=== PATIENT | female | born 2000 | race Asian ===

== ENCOUNTER 2024-06-09 09:30 | Outpatient (REF) | payer OTHER, SELFPAY ==
[2024-06-09 13:10] LABS: MANUAL DIFF FLAG NO
[2024-06-09 13:15] LABS: Basophils Absolute Auto 0.1 X10*3/uL (0.0-0.2); Basophils Percent Auto 0.7 % (0-2); Eosinophils Absolute Auto 0.2 X10*3/uL (0.0-0.4); Eosinophils Percent Auto 2.2 % (0-4); Hematocrit 43.3 % (37.0-47.0); Hemoglobin 13.6 g/dl (12.0-16.0); Imm Gran Abs Auto 0.07 X10*3/uL (0.00-0.03); Imm Gran Pct Auto 0.7 % (0.0-0.4); Lymphocytes Absolute Auto 3.5 X10*3/uL (1.2-4.9); Lymphocytes Percent Auto 34.1 % (20-40); Mean Corpuscular HGB Conc 31.4 g/dl (31.0-35.0); Mean Corpuscular Hemoglobin 27.1 pg (27.0-33.0); Mean Corpuscular Volume 86.4 fL (80.0-98.0); Mean Platelet Volume 10.2 fL (9.4-12.3); Monocytes Absolute Auto 0.8 X10*3/uL (0.1-1.2); Monocytes Percent Auto 7.4 % (2-11); Neutrophils Absolute Auto 5.7 x10*3/uL (2.0-8.3); Neutrophils Percent Auto 54.9 % (45-73); Platelet Count 305 X10*3/uL (160-400); Red Blood Count 5.01 X10*6/uL (4.20-5.50); Red Cell Distribution Width 13.3 % (11.0-16.0); White Blood Count 10.3 X10*3/uL (4.8-10.8)
[2024-06-09 13:37] LABS: Alanine Aminotransferase 39 U/L (0-31); Albumin Level 4.1 g/dL (3.5-5.0); Alkaline Phosphatase 96 U/L (39-117); Anion Gap 12 (12-20); Aspartate Amino Transferase 21 U/L (5-31); Bilirubin Total 0.3 mg/dL (0.0-1.0); Blood Urea Nitrogen 10 mg/dL (9-16); Calcium 9.6 mg/dL (8.4-10.2); Carbon Dioxide 27 mmol/L (22-29); Chloride 106 mmol/L (96-108); Cholesterol 200 mg/dL (<200); Estimated Glomerular Filt Rate > 60; Glucose Fasting 129 mg/dL (60-99); HDL Cholesterol 48 mg/dL (>40); LDL Cholesterol Calculated 135 mg/dL (<100); Potassium 4.6 mmol/L (3.3-5.1); Sodium 140 mmol/L (135-145); Total Protein 7.6 g/dL (6.5-8.0); Triglycerides 88 mg/dL (<150)
[2024-06-09 13:54] LABS: Free T4 (Free Thyroxine) 1.02 ng/dL (0.71-1.85); Thyroid Stimulating Hormone 2.86 uIU/mL (0.32-4.0)
[2024-06-09 13:55] LABS: Estimated Average Glucose 143 mg/dL; Hemoglobin A1c % 6.6 % (<6.0)
== END 2024-06-09 09:31 | disposition home or self-care (01) ==
LOC: HO.HMGCLDS 09:30
PROVIDERS: PCP Internal Medicine; Visit Provider Internal Medicine
DX: Z00.00 Encounter for general adult medical examination without abnormal findings (principal); R53.83 Other fatigue; E78.5 Hyperlipidemia, unspecified
CPT/HCPCS: 36415; 80053; 80061; 83036; 84439; 84443; 85025

== ENCOUNTER 2024-09-05 13:18 | Outpatient (REF) | payer OTHER, SELFPAY ==
[2024-09-06 11:39] LABS: Bacterial Vaginosis PCR NEGATIVE (Negative); Candida Group PCR DETECTED (Not Detect); Candida glab krusei PCR NOT DETECTED (Not Detect); Trichomonas vaginalis PCR NOT DETECTED (Not Detect)
[2024-09-06 12:08] LABS: CT PCR NOT DETECTED (Not Detect.); NG PCR NOT DETECTED (Not Detect.)
== END 2024-09-05 13:19 | disposition home or self-care (01) ==
LOC: HO.LAB 13:18
PROVIDERS: PCP Internal Medicine; Visit Provider Advanced Practice Midwife
DX: N89.8 Other specified noninflammatory disorders of vagina (principal); Z01.419 Encounter for gynecological examination (general) (routine) without abnormal findings; R73.03 Prediabetes; E66.01 Morbid (severe) obesity due to excess calories; Z12.4 Encounter for screening for malignant neoplasm of cervix; Z11.3 Encounter for screening for infections with a predominantly sexual mode of transmission; Z30.09 Encounter for other general counseling and advice on contraception
CPT/HCPCS: 0352U; 87491; 87591; 99385

== ENCOUNTER 2024-09-05 13:18 | Outpatient (AMB) | payer OTHER, SELFPAY ==
[2024-09-05 13:46] VITALS: BP 120/80; BMI 52.1
--- NOTE | 2024-09-05 13:46 | MHC.OFFVIS ---
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 She said that she was told she was prediabetic in [place] and she was on Ozempic but she has not been able to get it here she saw her primary care provider just wants and has an appointment with him next week she was told that she still is prediabetic but he wanted her to work on trying to lose weight on her own 1st. She is trying to do intervals of walking in the morning and trying to better and smaller portions and limit carbs.. She is not using anything for control if she got she would have an . 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 She wants to work in [employer] Medical History (Updated 09/05/24 @ 14:54 by Bethanie Coppola CNM) Migraines Female Reproductive History Menstrual Age of Menarche: 13 Duration of menses: 6-7 days control method: none Total pregnancies: 0 History of abnormal pap smear: No (no previous pap) Physical Exam Vital Signs: Last Vital Signs BP 120/80 09/05/24 13:46 BMI result Body Mass Index 52.1 Const General: healthy appearing, comfortable, no acute distress, well developed and alert Nutritional Appearance: obese morbidly obese Orientation/consciousness: patient oriented x3 Limitations: no limitations HEENT Head: Yes normocephalic Neck Neck: Yes normal visual inspection Chest Chest palpation & inspection: normal inspection of the chest Breast/axilla inspection: normal inspection of the breasts and normal inspection of the axillae Breast/axilla palpation: normal palpation of the breasts and normal palpation of the axillae Resp Effort & Inspection: normal respiratory effort GI Inspection: Yes normal to inspection and No Abdominal wall edema Palpation (GI): Soft to palpation and nontender Other: Normal external vulva the 2 small bumps on labia majora where right and left meet above clitoris that maybe consistent condyloma but not quite clear. Vagina is pink and moist fairly normal menses which appears to be just starting Cervix pink nulliparous slightly difficult to feel and see secondary to adipose Uterus feels small mobile nontender difficult to feel completely secondary to adipose/habitus Adnexa nonenlarged nontender again limited by adipose tissue Good muscle tone. General: Yes bladder normal to palpation External Female Exam: normal external appearance and normal appearance of the urethra Speculum Exam - Vagina: normal appearance of the vagina and normal palpation Speculum Exam - Cervix: normal appearance of the cervix, normal palpation and nontender Bimanual exam- vagina & uterus: normal bimanual exam, normal palpation, uterine size normal, bladder normal to palpation, consistency normal, normal palpation, uterine mobility normal, uterine shape normal, No Cervical tenderness present, non-tender and no cervical motion tenderness Bimanual Exam- Adnexa, other: normal adnexae, no masses, normal and No adnexal tenderness Neuro General: patient oriented x3 Assessment & Plan Assessment & Plan (1) Prediabetes: Code(s): R73.03 - Prediabetes Category: Medical (2) Obesity, morbid, BMI 50 or higher: Comment: Full discussion regarding her health and goals and ways to achieve. Code(s): E66.01 - Morbid (severe) obesity due to excess calories Category: Medical (3) Encounter for gynecological examination with Papanicolaou smear of cervix: Code(s): Z01.419 - Encounter for gynecological examination (general) (routine) without abnormal findings Category: Medical (4) Cervical cancer screening: Code(s): Z12.4 - Encounter for screening for malignant neoplasm of cervix Category: Medical (5) Encounter for screening examination for sexually transmitted disease: Code(s): Z11.3 - Encounter for screening for infections with a predominantly sexual mode of transmission Category: Medical (6) control counseling: Comment: Reviewed options and side effects-menses are starting to start OCPs tomorrow reviewed risks in detail. Code(s): Z30.09 - Encounter for other general counseling and advice on contraception Category: Medical Plan -----Discussed in this visit the following: healthy balanced diet, regular and consistent exercise, getting recommended health screens, doing the best she can for her particular health concerns, kegel exercises, pap smear screening and followup recommendations, mammography screening and SBE, normal changes in cycles in her life stage--- . Most of the visit revolved discussing the largest issue for her health her weight and interplay that her other health issues even if they are not obvious at this time. She does know that she is prediabetic and she was diagnosed she was in [place] she was on Ozempic but has not been to get a year. It had not yet started work for her yes. I discussed strategies she is employed try to get healthier and discussed the importance of addressing this in his sees way at this time of her life before there was more damage the long-term effects of obesity and diabetes on her health. Discussed her activity, eating habits activity during the day and encouraged her to not be sedentary as that would increase her risk of blood clots as well as a review that there is a slight risk of blood clots on I am giving her a low-dose OCP and I reviewed how to take it and I recommend that she start tomorrow, as it is obvious that her menses have started now . So that if she does not success with her weight loss journey to consider other options but she would to discuss with her doctor. Encouraged her to proactive in efforts to pursue improved health and weight loss. Probable 1st Pap was done as well as STI testing.. She has an appointment with her primary next week, Orders: Orders Bacterial Vaginosis Panel Today N89.8 - Other specified noninflammatory disorders of vagina CT NG by PCR Today N89.8 - Other specified noninflammatory disorders of vagina Pap Smear Today Z00.00 - Encounter for general adult medical examination without abnormal findings Medications: New desog-e.estradiol/e.estradiol 0.15-0.02 mgx21 /0.01 mg x 5 1 tab PO DAILY 84 tabs 3RF Coding Level of Care Code New Pt Prev Care 18-39yr([id number] Diagnoses Prediabetes R73.03 Obesity, morbid, BMI 50 or higher E66.01 Encounter for gynecological examination with Papanicolaou smear of cervix Z01.419 Cervical cancer screening Z12.4 Encounter for screening examination for sexually transmitted disease Z11.3 control counseling Z30.09
== END 2024-09-05 15:00 | disposition home or self-care (01) ==
LOC: HO.HWSM 13:19
PROVIDERS: PCP Internal Medicine; Visit Provider Advanced Practice Midwife
DX: Z01.419 Encounter for gynecological examination (general) (routine) without abnormal findings (principal); R73.03 Prediabetes; E66.01 Morbid (severe) obesity due to excess calories; Z30.09 Encounter for other general counseling and advice on contraception
CPT/HCPCS: 99385

== ENCOUNTER 2024-09-05 14:51 | Outpatient (REF) | payer OTHER, SELFPAY | END 2024-09-05 14:52 | disposition home or self-care (01) | LOC: HO.LNP 14:51 | PROVIDERS: Visit Provider Advanced Practice Midwife | DX: Z00.00 Encounter for general adult medical examination without abnormal findings (principal) | CPT/HCPCS: 88175 ==

== ENCOUNTER 2024-10-02 11:15 | Outpatient (REF) | payer OTHER, SELFPAY ==
[2024-10-02 14:04] LABS: Estimated Average Glucose 200 mg/dL; Hemoglobin A1C 257.4986 umol/L; Hemoglobin A1c % 8.6 % (<6.0)
== END 2024-10-02 11:16 | disposition home or self-care (01) ==
LOC: HO.HMGCLDS 11:15
PROVIDERS: PCP Internal Medicine; Visit Provider Internal Medicine
DX: E11.9 Type 2 diabetes mellitus without complications (principal); R53.83 Other fatigue
CPT/HCPCS: 36415; 83036

== ENCOUNTER 2024-12-11 11:01 | Outpatient (AMB) | payer OTHER, SELFPAY ==
--- NOTE | 2024-12-11 11:05 | A.OFFVIS_ITS ---
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 She says she is not having any problems with pills her periods have started to be more regular though they can be heavy this last 1 was not as heavy as the previous ones. She does not get headaches anymore than she used to.. She started on Trulicity in October because she progressed from prediabetic to diabetic. She says the doctor told her her sugars were within acceptable range they are usually around fasting and 130 postprandial. She said she asked if she could get on the Ozempic but she said she had to try the Trulicity 1st for insurance reason. She sometimes has noted some areas of her vagina that feels sore and they it feels like they have cuts but it is usually after she has dry they put Monistat on it and it felt better. [facility] Medical History (Updated 12/11/24 @ 12:00 by Bethanie Coppola CNM) Migraines Female Reproductive History Menstrual Age of Menarche: 13 Duration of menses: 3-5 days Date of last menstrual period: 11/29/24 control method: pills Total pregnancies: 0 Date of last pap smear: 09/05/24 History of abnormal pap smear: No Physical Exam Vital Signs: Last Vital Signs BP 128/88 12/11/24 11:10 BMI result Body Mass Index 53.0 Results Reviewed Results Reviewed: Name: Ellen Mondragon Age/Sex: 24/F Attending: Bethanie Coppola CNM : 2000 Submitted by: Bethanie Coppola CNM Copies to: MR #: [id number] Status: DEP REF Collected: 09/05/24 Location: [facility] Received: 09/06/24 Interpretation Satisfactory for evaluation. Negative for intraepithelial lesion or malignancy. No endocervical cells seen. Fungal organisms consistent with Jackie species. Clinical Information LMP: Irregular menses Previous PAP test: No previous pap Material Received ThinPrep-Cervical Electronically Signed By: LANDON Pugh (ASCP) 09/08/24 0816 As of August 23, 2024, the PAP screening and HPV testing will be performed at [facility] (CLIA#[id number]), [address] [place] [address]. Testing for HPV was performed using the Saman ALY 6800 system. The presence of HPV is the female genital tract is associated with a number of diseases, including cervical carcinoma. The HPV DNA high risk pool test for HPV 31, 33, 35, 39, 45, 51, 52, 56, 58, 59, 66 and 68. The testing for HPV 16 and 18 genotypes has also been performed. A positive result indicates detection of nucleic acid sequences from one or more subtypes, whereas negative result indicates such sequences were not detected. Technical services and automated prescreening were performed by the ThinPrep Imaging System. The Pap Test is a screening procedure with the inherent possibility of both false negative and false positive results. Results should be interpreted in the context of historic and current clinical findings. Reliability of the Pap Test is enhanced by performing the test on a regular repetitive basis. Patient: Ellen Mondragon Age/Sex: 24/F MR#: [id number] Page 1 of 1 Assessment & Plan Assessment & Plan (1) Diabetes: Code(s): E11.9 - Type 2 diabetes mellitus without complications Category: Medical (2) Cervical cancer screening: Comment: 09/05/24 pap is neg Code(s): Z12.4 - Encounter for screening for malignant neoplasm of cervix Category: Medical (3) control counseling: Comment: Reviewed options and side effects-menses are starting to start OCPs tomorrow reviewed risks in detail. Code(s): Z30.09 - Encounter for other general counseling and advice on contraception Category: Medical (4) Obesity, morbid, BMI 50 or higher: Comment: Full discussion regarding her health and goals and ways to achieve. Code(s): E66.01 - Morbid (severe) obesity due to excess calories Category: Medical (5) Borderline blood pressure: Code(s): R03.0 - Elevated blood-pressure reading, without diagnosis of hypertension Category: Medical (6) Yeast infection of the vagina: Comment: By symptoms and description, responds to Monistat teaching done, Monistat prescribed Code(s): B37.31 - Acute candidiasis of vulva and vagina Category: Medical Plan Discussed her weight gain instead of loss discussed her progression from prediabetes to diabetes discussed that very often some of the medications that help with diabetes contribute to very sugary urine which can contribute to yeast infections aside from the high blood sugar contributing to yeast discussed that this is the more likely cause of her symptoms that she described as herpes would not respond to Monistat. I offered to send more refills on the Monistat so she will have it future.. Discussed the real importance of weight loss in order to deal with her health overall and her now current diabetes and borderline blood pressure. I urged her to advocate for herself both with her own actions in terms of diet and exercise and movement and eating well and also advocating for trial of the Ozempic when her doctor thinks it would be advisable for her and might get approval now that she has other medical issues. Discussed that if her blood pressure were any more elevated might need to discuss stopping the control pills. Discussed consideration for weight loss surgery as well and she is not interested in that now and declined brochure. We will see her in about 3 months for pill check blood pressure check and vaginal check. Medications: New miconazole nitrate 2% (Miconazole-7) For use p.r.n. for yeast symptoms. 1 appful vaginal BEDTIME 7 days 45 grams 2RF Coding Level of Care Code Est Pt Level 3 (35327) Diagnoses Diabetes E11.9 Cervical cancer screening Z12.4 control counseling Z30.09 Obesity, morbid, BMI 50 or higher E66.01 Borderline blood pressure R03.0 Yeast infection of the vagina B37.31 Time Spent (min) 35 Comment 100% spent reviewing her many health issues in the interplay and management.
[2024-12-11 11:10] VITALS: BP 128/88; BMI 53.0
== END 2024-12-11 11:56 | disposition home or self-care (01) ==
PROVIDERS: PCP Internal Medicine; Visit Provider Advanced Practice Midwife
DX: B37.31 Acute candidiasis of vulva and vagina (principal); Z30.41 Encounter for surveillance of contraceptive pills; E66.01 Morbid (severe) obesity due to excess calories
CPT/HCPCS: 99213

== ENCOUNTER → 2024-12-11 11:01 | Outpatient (BNVA) | payer OTHER, SELFPAY | PROVIDERS: PCP Internal Medicine; Visit Provider Advanced Practice Midwife | DX: E66.01 Morbid (severe) obesity due to excess calories (principal); E11.9 Type 2 diabetes mellitus without complications; R03.0 Elevated blood-pressure reading, without diagnosis of hypertension; B37.31 Acute candidiasis of vulva and vagina; Z30.09 Encounter for other general counseling and advice on contraception; Z79.3 Long term (current) use of hormonal contraceptives; Z68.43 Body mass index [BMI] 50.0-59.9, adult | CPT/HCPCS: 99212 ==

== ENCOUNTER 2025-03-12 11:14 | Outpatient (REF) | payer OTHER, SELFPAY ==
[2025-03-12 18:26] LABS: Bacterial Vaginosis PCR NEGATIVE (Negative); Candida Group PCR DETECTED (Not Detect); Candida glab krusei PCR NOT DETECTED (Not Detect); Trichomonas vaginalis PCR NOT DETECTED (Not Detect)
[2025-03-12 19:00] LABS: CT PCR NOT DETECTED (Not Detect.); NG PCR NOT DETECTED (Not Detect.)
== END 2025-03-12 11:15 | disposition home or self-care (01) ==
LOC: HO.LNP 11:14
PROVIDERS: PCP Internal Medicine; Visit Provider Advanced Practice Midwife
DX: Z30.09 Encounter for other general counseling and advice on contraception (principal); B37.31 Acute candidiasis of vulva and vagina; E66.01 Morbid (severe) obesity due to excess calories; E11.9 Type 2 diabetes mellitus without complications; L98.9 Disorder of the skin and subcutaneous tissue, unspecified
CPT/HCPCS: 81515; 87491; 87591; 99212

== ENCOUNTER 2025-03-12 11:14 | Outpatient (AMB) | payer OTHER, SELFPAY ==
--- NOTE | 2025-03-12 11:33 | A.OFFVIS_ITS ---
Vital Signs 3 03/12/25 15:57 Height 5 ft 2 in BP 120/88 Intake Visit Reasons: 3 month pill check ,BP &vaginal exam Allergies No Known Allergies Allergy (Verified 12/11/24 11:11) Medication List - Last Reconciled 03/12/25 by Bethanie Coppola CNM wqlefzyqiv-zkrjong-mkwltrdm 50-325-40 mg 1 cap PO Q6H PRN desog-e.estradiol/e.estradiol 0.15-0.02 mgx21 /0.01 mg x 5 1 tab PO DAILY miconazole nitrate 2% (Miconazole-7) 1 appful vaginal BEDTIME 7 days Is last menstrual period known: Yes Last menstrual period: 02/23/25 HPI HPI 3 month pill check ,BP &vaginal exam: Details: re check vagina for ? genital warts per pt., c/o itching in vagina.- rn note- patient is here for blood pressure check on control pills. Her blood pressure is borderline today she reports no worsening in her migraines which she has gotten a long time she does not get auras with them. She also wants to get bumps checked on her vulva that she says I thought might have been warts she thinks it gets cut there when she uses her vibrator and also maybe with cleaning. She also is very itchy in burny at her vulva she has been using the Monistat cream that I gave her in the past. She was on Trulicity but stopped it because the injections were painful and she has changed to a new primary care provider in hopes that she can get started on Ozempic which is what she used to be on when she was in [place]. She says her sugars in the morning are about 100 and her sugars in the afternoon are about 130. [facility] Medical History (Updated 03/12/25 @ 13:10 by Bethanie Coppola CNM) Diabetes Migraines Female Reproductive History Menstrual Age of Menarche: 13 Duration of menses: 3-5 days Date of last menstrual period: 02/23/25 control method: pills Total pregnancies: 0 Physical Exam Other: external vulva very reddened labia minora with white cream evident from Monistat. There are 2 symmetrical bumps above her clitoris on her mons pubis that might be customer account representative of warts or might simply be scar tissue from having cut herself there and having had it heal and get re cut from use. vagina is bright pink and moist consistent with yeast scant white discharge seen swabs taken. cervix nulliparous Female genitals images: 2 1. raw red from yeast infection 2. bumps unclear if warts or not 3. bumps unclear if warts or not Assessment & Plan Assessment & Plan (1) Borderline blood pressure: Code(s): R03.0 - Elevated blood-pressure reading, without diagnosis of hypertension Category: Medical (2) Obesity, morbid, BMI 50 or higher: Comment: Full discussion regarding her health and goals and ways to achieve. Code(s): E66.01 - Morbid (severe) obesity due to excess calories Category: Medical (3) Diabetes: Code(s): E11.9 - Type 2 diabetes mellitus without complications Category: Medical (4) Yeast infection of the vagina: Comment: By symptoms and description, responds to Monistat teaching done, Monistat prescribed Code(s): B37.31 - Acute candidiasis of vulva and vagina Category: Medical (5) control counseling: Comment: Reviewed options and side effects-menses are starting to start OCPs tomorrow reviewed risks in detail.; reviewed borderline blood pressure migraines are no worse patient to continue on combination OCPs next check in six-months. patient is hoping to start on Ozempic soon and therefore losing weight and improving her diabetes as well. Code(s): Z30.09 - Encounter for other general counseling and advice on contraception Category: Medical (6) Counseling for control, oral contraceptives: Code(s): Z30.09 - Encounter for other general counseling and advice on contraception Category: Medical (7) Bumps on skin: Comment: on mons pubis above clitoris possibly from warts or scar tissue after abrasions.... treatment for possible warts would be contraindicated today secondary to the severe yeast infection and need to get diabetes under better control 1st. Code(s): L98.9 - Disorder of the skin and subcutaneous tissue, unspecified Category: Medical Plan reviewed her blood pressure reviewed her diabetes reviewed that she has just stopped Trulicity in the last month because of the painful injections. She had been on Ozempic before and had no issues with it but is now seeking a new primary care provider that she will be meeting on April 03 and is hoping that she can get on Ozempic to help with weight loss. Her migraines are no worse she never gets aura with them. She is doing well on the pills then wants to stay on them. She has been having vaginal itching and burning. She says she has a couple of bumps above her clitoris that she said I noted the 1st time I saw her and every now and then if she wipes very hard she feels like she cuts herself in between there and it maybe from having cut herself in the past and having some scar tissue form around it. The other alternative that I suggested is that it might have been warts but I can not tell in any case she is extremely inflamed and raw from a current yeast infection in any liquid product used to destroy potential warts would drip down into her inflamed vulva and would be a very bad idea at this time I suggest she leave it alone until she is able to get the yeast taking care as well as lose weight and get her diabetes under better control. since it has not changed over time then she can seek gynecological assessment of the bumps. she said it is possible that they formed after getting cuts there from use of a vibrator. Timeframe/Date Comment 6 m pill check /bp check Orders: Orders 2 CT NG by PCR Today B37.31 - Acute candidiasis of vulva and vagina Bacterial Vaginosis Panel Today B37.31 - Acute candidiasis of vulva and vagina Medications: New 2 fluconazole may repeat second dose 72 hrs after first dose if symptoms persist 150 mg PO Q3D 2 tabs 2RF 2 doses Refilled 2 miconazole nitrate 2% (Miconazole-7) For use p.r.n. for yeast symptoms. 1 appful vaginal BEDTIME 45 grams 2RF 7 days Coding Level of Care Code Est Pt Level 3 (32194) Diagnoses Borderline blood pressure R03.0 Obesity, morbid, BMI 50 or higher E66.01 Diabetes E11.9 Yeast infection of the vagina B37.31 control counseling Z30.09 Counseling for control, oral contraceptives Z30.09 Bumps on skin L98.9
--- NOTE | 2025-03-12 12:03 | MHC.OFFVIS ---
Intake Visit Reasons: 3 month pill check ,BP &vaginal exam Allergies No Known Allergies Allergy (Verified 12/11/24 11:11) Medication List - Last Reconciled 03/12/25 by Bethanie Coppola CNM ubejdgigsw-vvybjlc-vtnptksr 50-325-40 mg 1 cap PO Q6H PRN desog-e.estradiol/e.estradiol 0.15-0.02 mgx21 /0.01 mg x 5 1 tab PO DAILY miconazole nitrate 2% (Miconazole-7) 1 appful vaginal BEDTIME 7 days PFSH Medical History (Updated 03/12/25 @ 13:10 by Bethanie Coppola CNM) Diabetes Migraines Female Reproductive History Menstrual Age of Menarche: 13 Duration of menses: 3-5 days control method: pills Assessment & Plan Assessment & Plan (1) Borderline blood pressure: Code(s): R03.0 - Elevated blood-pressure reading, without diagnosis of hypertension Category: Medical (2) Obesity, morbid, BMI 50 or higher: Comment: Full discussion regarding her health and goals and ways to achieve. Code(s): E66.01 - Morbid (severe) obesity due to excess calories Category: Medical Orders: Orders CT NG by PCR Today B37.31 - Acute candidiasis of vulva and vagina Bacterial Vaginosis Panel Today B37.31 - Acute candidiasis of vulva and vagina Medications: New fluconazole may repeat second dose 72 hrs after first dose if symptoms persist 150 mg PO Q3D 2 tabs 2RF 2 doses Refilled miconazole nitrate 2% (Miconazole-7) For use p.r.n. for yeast symptoms. 1 appful vaginal BEDTIME 45 grams 2RF 7 days Coding Diagnoses Borderline blood pressure R03.0 Obesity, morbid, BMI 50 or higher E66.01
[2025-03-12 15:57] VITALS: BP 120/88
== END 2025-03-12 12:31 | disposition home or self-care (01) ==
LOC: HO.HWS 11:14
PROVIDERS: PCP Internal Medicine; Visit Provider Advanced Practice Midwife
DX: R03.0 Elevated blood-pressure reading, without diagnosis of hypertension (principal); E66.01 Morbid (severe) obesity due to excess calories; E11.9 Type 2 diabetes mellitus without complications; B37.31 Acute candidiasis of vulva and vagina; Z30.09 Encounter for other general counseling and advice on contraception; L98.9 Disorder of the skin and subcutaneous tissue, unspecified
CPT/HCPCS: 99213

== ENCOUNTER 2025-05-17 11:06 | Outpatient (REF) | payer OTHER, SELFPAY ==
[2025-05-17 13:27] LABS: Hemoglobin A1C 264.2616 umol/L; Total Hemoglobin (HGBA1C) 3744.7642 umol/L
[2025-05-17 13:34] LABS: Alanine Aminotransferase 21 U/L (0-31); Albumin Level 4.2 g/dL (3.5-5.0); Alkaline Phosphatase 84 U/L (39-117); Anion Gap 14 (12-20); Aspartate Amino Transferase 27 U/L (5-31); Blood Urea Nitrogen 9 mg/dL (9-16); Calcium 9.0 mg/dL (8.4-10.2); Carbon Dioxide 24 mmol/L (22-29); Chloride 106 mmol/L (96-108); Cholesterol 249 mg/dL (<200); Estimated Glomerular Filt Rate > 60; HDL Cholesterol 49 mg/dL (>40); Potassium 4.5 mmol/L (3.3-5.1); Sodium 139 mmol/L (135-145); Total Protein 7.5 g/dL (6.5-8.0); Triglycerides 169 mg/dL (<150)
[2025-05-17 13:54] LABS: Thyroid Stimulating Hormone 1.95 uIU/mL (0.32-4.0)
== END 2025-05-17 11:07 | disposition home or self-care (01) ==
LOC: HO.HMGCLDS 11:06
PROVIDERS: PCP Nurse Practitioner Family; Visit Provider Nurse Practitioner Family
DX: E03.9 Hypothyroidism, unspecified (principal); E11.9 Type 2 diabetes mellitus without complications; E78.5 Hyperlipidemia, unspecified
CPT/HCPCS: 36415; 80053; 80061; 82306; 83036; 84443

== ENCOUNTER 2025-09-10 09:25 | Outpatient (AMB) | payer OTHER, SELFPAY ==
[2025-09-10 09:27] VITALS: BP 116/66; BMI 52.0
--- NOTE | 2025-09-10 09:27 | MHC.OFFVIS ---
Vital Signs 09/10/25 09:27 Height 5 ft 2 in Weight 284 lb 4 oz BMI 52.0 BP 116/66 Blood Pressure Location Lt brachial Position Sitting Intake Visit Reasons: 6 months pills check Seat Cover Maker Required: No Allergies No Known Allergies Allergy (Verified 09/10/25 09:31) Medication List - Last Reconciled 09/10/25 by Maki Wade LPN amitriptyline 10 mg PO BEDTIME desog-e.estradiol/e.estradiol 0.15-0.02 mgx21 /0.01 mg x 5 1 tab PO DAILY metformin 750 mg PO DAILY metformin 1,000 mg PO DAILY rizatriptan take 1 tablet at onset of headache; if no relief, may repeat 1 tablet after at least 2 hrs PO rosuvastatin 5 mg PO DAILY Is last menstrual period known: Yes Last menstrual period: 09/18/25 Post menopausal: No Patient : No Do you need a note to return to daycare/school/sports/work: No HPI HPI 6 months pills check: Details: Patient is here for a pill check visit. She has been on control pills and is here to check her blood pressure as it was borderline at the last visit. Patient is a diabetic and she is seeing provider's who were not connected to the system and there is no sharing of records. But I see lab work from the summer that indicates a hemoglobin A1c of 8.6 and blood sugars that are elevated. She tells me she has an appointment to see her primary in about 2 weeks and we will be getting blood work the week before and she is thinking about going to another lab so her primary can see those results as apparently he was not able to see the results from the summer. In addition she still has vaginal itching she did use 1 tablet of the fluconazole that I gave her and the cream and it got better last March so she did not use anymore she sometimes asks her boyfriend to check to see if she has red but he tells her it is okay but she thinks maybe he does not know what is normal. 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 She is trying to walk around the block and twice a week she goes to the gym at [employer] and walks on the treadmill and does some arm weights. She has no worries at all about STIs. [facility] Medical History (Updated 03/12/25 @ 13:10 by Bethanie Coppola CNM) Diabetes Migraines Family History (Updated 09/10/25 @ 09:37 by Maki Wade LPN) Father Diabetes Female Reproductive History Menstrual Age of Menarche: 13 Duration of menses: 6-7 days Date of last menstrual period: 09/18/25 control method: pills Physical Exam Vital Signs: Last Vital Signs BP 116/66 09/10/25 09:27 Other: External exam and speculum exam her labia minora are completely reddened and excoriated and are flaming bright pink in color. There is a small amount of white curdish discharge has introitus as well thin speculum used difficult to visualize structures completely secondary to adipose. Results Reviewed Results Reviewed: Name: Ellen Mondragon Age/Sex: 24/F Attending: Bethanie Coppola CNM : 2000 Submitted by: Bethanie Coppola CNM Copies to: MR #: [id number] Status: DEP REF Collected: 09/05/24 Location: [facility] Received: 09/06/24 Interpretation Satisfactory for evaluation. Negative for intraepithelial lesion or malignancy. No endocervical cells seen. Fungal organisms consistent with Jackie species. Clinical Information LMP: Irregular menses Previous PAP test: No previous pap Material Received ThinPrep-Cervical Electronically Signed By: LANDON Pugh (ASCP) 09/08/24 0816 As of August 23, 2024, the PAP screening and HPV testing will be performed at [facility] (CLIA#[id number]), [address] [place] [address]. Testing for HPV was performed using the [employer] [id number] system. The presence of HPV is the female genital tract is associated with a number of diseases, including cervical carcinoma. The HPV DNA high risk pool test for HPV 31, 33, 35, 39, 45, 51, 52, 56, 58, 59, 66 and 68. The testing for HPV 16 and 18 genotypes has also been performed. A positive result indicates detection of nucleic acid sequences from one or more subtypes, whereas negative result indicates such sequences were not detected. Technical services and automated prescreening were performed by the [employer] System. The Pap Test is a screening procedure with the inherent possibility of both false negative and false positive results. Results should be interpreted in the context of historic and current clinical findings. Reliability of the Pap Test is enhanced by performing the test on a regular repetitive basis. Patient: Ellen Mondragon Age/Sex: 24/F MR#: [id number] Page 1 of 1 PEC : [id number] AKILAH: 05/17/25 STATUS: COMP REQ : [id number] RECD: 05/17/[address] [facility] [address]: Dagmar Aguilera RENAL DIALYSIS RN COMP: 05/17/25 ENTERED: 05/17/25 KANE GATICA: ORDERED: CMP, Lipid Panel, Vitamin D 25-OH, TSH Test Result Flag Reference Sodium 139 135-145 mmol/L Potassium 4.5 3.3-5.1 mmol/L CL 106 96-108 mmol/L CO2 24 22-29 mmol/L Gap 14 12-20 BUN 9 9-16 mg/dL Creat 0.64 0.5-1.4 mg/dL eGFR > 60 Chronic Kidney Disease: Estimated GFR < 60 mL/min/1.73m2 Severe Kidney Disease: Estimated GFR < 15 mL/min/1.73m2 Glucose, Random 196 H 60-115 mg/dL CA 9.0 # 8.4-10.2 mg/dL Total Bili 0.3 0.0-1.0 mg/dL AST (GOT) 27 5-31 U/L ALT (GPT) 21 0-31 U/L Protein, Total 7.5 6.5-8.0 g/dL Alb 4.2 3.5-5.0 g/dL Triglyceride 169 H <150 mg/dL Desirable Triglyceride: less than 150 mg/dL Borderline High Triglyceride 150-199 mg/dL High Triglyceride: 200-499 mg/dL Very High Triglyceride: greater than or equal to 5OO mg/dL Cholesterol 249 H <200 mg/dL Desirable Cholesterol: less than 200 mg/dL Borderline High Cholesterol: 200-239 mg/dL High Cholesterol: greater than 239 mg/dL LDL Calculated 167 H <100 mg/dL Desirable LDL: less than 100 mg/dL Near Optimal/Above Optimal LDL: 110-129 mg/dL Borderline High LDL: 130-159 mg/dL High LDL: 160-189 mg/dL Very High LDL: greater than or equal to 190 mg/dL HDL 49 >40 mg/dL Desirable HDL: greater than 40 mg/dL Note: This HDL assay may give artificially low results in patients with liver disease. Alk Phos 84 39-117 U/L Vitamin D 25-OH 23.4 L >30 ng/mL Health Based Reference Values* < 20 ng/mL Deficient 20-30 ng/mL Insufficient > 30 ng/mL Sufficient *Mane FINLEY. N Engl J Med. 2007;357:266-280 There is no well-established upper level of normal vitamin D levels. Some laboratories use 50 ng/mL as an upper limit of normal. However, toxicity is patient-dependent and may occur at any level. Careful correlation with the patient's presentation is necessary and, if there is concern for vitamin D toxicity, treatment should be considered irrespective of the serum level. Care must be taken in interpreting Vitamin D results from different laboratories and methodologies. Published data demonstrated that results from patients undergoing hemodialysis may show a negative bias when tested with various automated 25-OH vitamin D assays when compared to LC-MS/MS. When testing samples from patients whose predominant form of Vitamin D is Vitamin D2, such as patients receiving Vitamin D2 supplementation, results that are subtherapeutic should be confirmed with another method such as LC-MS/MS. TSH 3rd Gen. 1.95 0.32-4.0 uIU/mL TSH 3rd Generation ([facility]) END OF REPORT Hemoglobin A1c on the same date was 8.6. 03/15/2025 testing for infection only showed Jackie. Assessment & Plan Assessment & Plan (1) Diabetes: Code(s): E11.9 - Type 2 diabetes mellitus without complications Category: Medical (2) Yeast infection of the vagina: Comment: By symptoms and description, responds to Monistat teaching done, Monistat prescribed Code(s): B37.31 - Acute candidiasis of vulva and vagina Category: Medical (3) Counseling for control, oral contraceptives: Code(s): Z30.09 - Encounter for other general counseling and advice on contraception Category: Medical (4) Obesity, morbid, BMI 50 or higher: Comment: Full discussion regarding her health and goals and ways to achieve. Code(s): E66.01 - Morbid (severe) obesity due to excess calories Category: Medical Plan She is doing fine on the control pills and her blood pressure is within normal range today. She is not having any migraines with auras she is doing her best to try and stay as active as she can be though with taking for courses that can be challenging . Most of this discussion was about trying to achieve better control of her diabetes and making sure she sees her primary care provider and gets labs as she needed to and hopefully that she can get the Ozempic that she desires to help her gain better control she is not interested in bariatric surgery I encouraged her to be open to what ever she can do to help her lose weight and get to healthier place at this time of her life before there were other negative effects of the weight and diabetes. For the yeast infection she is doing her best but with her blood sugars elevated it is difficult to get that under control I am prescribing fluconazole with refills that she can use and also miconazole cream with refills that she can use. She will be getting her lab work soon and I also wanted her to sign so that there can be exchange of records so that her primary can see the labs that she had done and know that these issues are being addressed here and hopefully she will get the help she needs. RTC 1 year Encouraged doubling her activity level to see if that makes a difference as well. She is checking her blood sugars twice daily and in the morning they have been around 120 and in the afternoon 140 or a little bit higher. Orders: Orders Bacterial Vaginosis Panel Today B37.31 - Acute candidiasis of vulva and vagina Medications: Refilled desog-e.estradiol/e.estradiol 0.15-0.02 mgx21 /0.01 mg x 5 1 tab PO DAILY 84 tabs 4RF fluconazole may repeat second dose 72 hrs after first dose if symptoms persist 150 mg PO Q3D 2 tabs 4RF 2 doses miconazole nitrate 2% (Miconazole-7) For use p.r.n. for yeast symptoms. 1 appful vaginal BEDTIME 45 grams 2RF 7 days Coding Level of Care Code Est Pt Level 3 (05424) Diagnoses Diabetes E11.9 Yeast infection of the vagina B37.31 Counseling for control, oral contraceptives Z30.09 Obesity, morbid, BMI 50 or higher E66.01
--- NOTE | 2025-09-10 09:43 | MHC.OFFVIS ---
Vital Signs 09/10/25 09:27 Height 5 ft 2 in Weight 284 lb 4 oz BMI 52.0 BP 116/66 Blood Pressure Location Lt brachial Position Sitting Intake Visit Reasons: 6 months pills check Intake Note: vaginal itching. Marketing Mgr Required: No Allergies No Known Allergies Allergy (Verified 09/10/25 09:31) Medication List - Last Reconciled 09/10/25 by Maki Wade LPN amitriptyline 10 mg PO BEDTIME desog-e.estradiol/e.estradiol 0.15-0.02 mgx21 /0.01 mg x 5 1 tab PO DAILY metformin 750 mg PO DAILY metformin 1,000 mg PO DAILY rizatriptan take 1 tablet at onset of headache; if no relief, may repeat 1 tablet after at least 2 hrs PO rosuvastatin 5 mg PO DAILY Is last menstrual period known: Yes Last menstrual period: 09/18/25 HPI HPI 6 months pills check: Characteristics of symptom or complaint: vaginal discharge with itching. PFSH Medical History (Updated 03/12/25 @ 13:10 by Bethanie Coppola CNM) Diabetes Migraines Family History (Updated 09/10/25 @ 09:37 by Maki Wade LPN) Father Diabetes Female Reproductive History Menstrual Age of Menarche: 13 Duration of menses: 6-7 days Date of last menstrual period: 09/18/25 control method: pills Physical Exam Vital Signs: Last Vital Signs BP 116/66 09/10/25 09:27 BMI result Body Mass Index 52.0 Coding
== END 2025-09-10 10:48 | disposition home or self-care (01) ==
LOC: HO.HWS 09:26
PROVIDERS: PCP Internal Medicine; Visit Provider Advanced Practice Midwife
DX: E11.9 Type 2 diabetes mellitus without complications (principal); B37.31 Acute candidiasis of vulva and vagina; Z30.09 Encounter for other general counseling and advice on contraception; E66.01 Morbid (severe) obesity due to excess calories
CPT/HCPCS: 99213

== ENCOUNTER 2025-09-10 09:25 | Outpatient (REF) | payer OTHER, SELFPAY ==
[2025-09-10 18:02] LABS: Bacterial Vaginosis PCR NEGATIVE (Negative); Candida Group PCR DETECTED (Not Detect); Candida glab krusei PCR NOT DETECTED (Not Detect); Trichomonas vaginalis PCR NOT DETECTED (Not Detect)
== END 2025-09-10 09:26 | disposition home or self-care (01) ==
LOC: HO.LNP 09:25
PROVIDERS: PCP Internal Medicine; Visit Provider Advanced Practice Midwife
DX: E11.9 Type 2 diabetes mellitus without complications (principal); B37.31 Acute candidiasis of vulva and vagina; Z30.09 Encounter for other general counseling and advice on contraception; E66.01 Morbid (severe) obesity due to excess calories
CPT/HCPCS: 81515; 99212